=== PATIENT | female | born 1995 | race Caucasian/White ===

== ENCOUNTER 2023-04-04 05:16 | Emergency (ER) | payer MEDICAID ==
[~2023-04-04] VITALS: Ht 170.2 cm; Wt 60.8 kg
[2023-04-04 05:33] VITALS: BP 111/72; PULSE 67; RESP 20; TEMP 98; O2SAT 98
[2023-04-04 07:22] LABS: BILIRUBIN,URINE NEGATIVE (NEGATIVE); BLOOD, URINE NEGATIVE (NEGATIVE); COLOR,URINE YELLOW (YELLOW); LEUKOCYTE ESTERASE ,URINE NEGATIVE (NEGATIVE); NITRITE, URINE NEGATIVE (NEGATIVE); PH,URINE 6.5 (5.0-9.0); PROTEIN,URINE NEGATIVE (NEGATIVE); UGLUCOSE NEGATIVE (NEGATIVE); UROBILINOGEN,URINE 0.2 EU/dL (0.2 - 1)
[2023-04-04 07:31] LABS: APPEARANCE,URINE SLIGHTLY HAZY (CLEAR); BACTERIA,URINE FEW /HPF (None Seen)
[2023-04-04 07:32] LABS: RBC,URINE 0-5 /HPF (0-5); SQUAMOUS EPITHELIAL CELL,UR 4-10 (MOD) /LPF (0-3 (FEW)); WBC,URINE 0-5 /HPF (0-5)
[2023-04-04 08:07] LABS: HIV RAPID SCREEN NON-REACTIVE (NON REACTIV)
[2023-04-04 08:42] LABS: RAPID PLASMA REAGIN NON-REACTIVE (Non Reactiv)
== END 2023-04-04 09:23 | disposition home or self-care (01) ==
LOC: MED 05:16
DX: S00.12XA Contusion of left eyelid and periocular area, initial encounter (principal); Z11.3 Encounter for screening for infections with a predominantly sexual mode of transmission; Y04.2XXA Assault by strike against or bumped into by another person, initial encounter; Y93.89 Activity, other specified; Y92.89 Other specified places as the place of occurrence of the external cause; Y99.8 Other external cause status
CPT/HCPCS: 81001; 81025; 86592; 87210; 87491; 99283